=== PATIENT | female | born 1945 | race Two or more races ===

== ENCOUNTER 2020-10-28 09:29 | Inpatient (IN) | payer OTHER ==
[~2020-10-28] VITALS: Ht 154.9 cm; Wt 73.5 kg
[~2020-10-28 09:29] MED LIST: DURICEF 500 MG CAPSULE PO; TRAM1TAB98 PO
[2020-10-28] MEDS ORDERED: ATORVASTATIN CA80 MG PO (10:03)
[2020-10-28] MEDS ORDERED: ZESTRIL10 M1 PO (10:04)
[2020-10-28] MEDS ORDERED: FORTAMET500 MG PO (10:04)
[2020-10-28] MEDS ORDERED: HYDROCHLO PO (10:05)
[2020-10-28] MEDS ORDERED: OLMESARTAN PO (10:05)
[2020-10-28] MEDS ORDERED: CHILDREN'S ASPI81 MG PO (10:06)
[2020-10-28] MEDS ORDERED: TOPROL XL25 M1 PO (10:06)
[2020-10-28] MEDS ORDERED: AMLODIPINE PO (10:07)
[2020-11-04] MEDS ORDERED: INTEGRA PLUS C1 EACH PO (06:27)
[2020-11-04] MEDS ORDERED: BACTRIM DS TAB1 EACH PO (06:27)
[2020-11-04] MEDS ORDERED: OXYC1TAB9 PO (06:27)
[2020-11-04] MEDS ORDERED: XARELTO10 MG PO (06:27)
== END 2020-11-04 19:01 | DRG 470 ==
LOC: O/R 11-02 07:50 → SURG 11-02 07:50 → SURH 11-02 09:45 → SURG 11-02 19:55
PROVIDERS: ADMIT Orthopaedic Surgery Sports Medicine; ATTEND Orthopaedic Surgery Sports Medicine
PROC: 3E0F7SF Introduction of Other Gas into Respiratory Tract, Via Natural or Artificial Opening (ICD-10-PCS; 2020-11-02)
PROC: 0SRD0J9 Replacement of Left Knee Joint with Synthetic Substitute, Cemented, Open Approach (ICD-10-PCS; principal; 2020-11-02 14:30)
DX: M17.12 Unilateral primary osteoarthritis, left knee (principal); Z20.822 Contact with and (suspected) exposure to COVID-19